=== PATIENT | female | born 1960 | race Caucasian/White ===

== ENCOUNTER 2017-02-21 13:17 | Observation (INO) ==
[2017-02-21] MEDS ORDERED: ZOFRAN IV PRN (14:33)
[2017-02-21] MEDS ORDERED: TYLENOL PO PRN (14:33)
[2017-02-21] MEDS ORDERED: MORPHINE IV PRN (14:33)
[2017-02-21 15:13] LABS: MANUAL DIFF NEEDED? NO
[2017-02-21] MEDS ORDERED: COLACE PO PRN (15:13)
[2017-02-21] MEDS ORDERED: VANCOMYCIN IV PER PHARMACY MISC SCH (15:15)
[2017-02-21 15:27] LABS: BASO% 0.6 % (0.0-0.8); EOS% 2.6 % (0.0-10.0); HEMOGLOBIN 11.9 g/dL (12.0-16.0); IMM GRAN# 0.12 X1000 (0.0-0.04); IMM GRAN% 0.8 % (0.0-0.5); LYMPH# 1.91 X1000 (1.2-3.4); LYMPH% 12.2 % (20.5-51.1); MCH 31.2 PG (27-31); MCV 91.6 FL (81-99); MONO# 1.22 X1000 (0.11-0.59); MONO% 7.8 % (1.7-9.3); MPV 11.7 FL (7.4-10.4); PLT 287 X1000 (130-400); RBC 3.82 XMIL (4.2-5.4)
[2017-02-21 15:36] LABS: INR 0.94; PROTIME 9.8 Seconds (9.2-11.7)
[2017-02-21 15:47] LABS: AGAP 17; ALBUMIN 3.4 g/dL (3.5-5.0); ALKALINE PHOSPHATASE 157 U/L (32-104); BUN 9 mg/dL (8-22); CALCIUM 8.7 mg/dL (8.8-10.2); CHLORIDE 105 mmol/L (98-107); CK PROFILE 31 U/L (24-173); COSMO 284; GOT 15 U/L (10-30); GPT 30 U/L (10-36); MAGNESIUM 1.8 mg/dL (1.5-2.7); POTASSIUM 3.2 mmol/L (3.5-5.1); SODIUM 143 mmol/L (136-145); TCO2 21 mmol/L (25-35); TOTAL BILIRUBIN 0.34 mg/dL (0.20-1.00); TOTAL PROTEIN 6.8 g/dL (6.3-8.3)
[2017-02-21] MEDS ORDERED: KLOR-CON PO ONE (15:48)
[2017-02-21] MEDS: NORCO-5 PO PRN (16:02)
[2017-02-21 16:25] LABS: MAGNESIUM 1.8 mg/dL (1.5-2.7)
--- NOTE | 2017-02-21 16:38 | Diag Imaging Result Doc PS360 ---
EXAM: PELVIS W/CONTRAST HISTORY: L hip abscess TECHNIQUE: CT of the pelvis with intravenous contrast COMMENT: There is subcutaneous edema and fluid present lateral to the gluteal region on the left. The fluid collection measures 4 cm in greatest AP dimension. This was not present on 12/18/2014. There is associated skin thickening. There may be a small amount of gas within the collection. There are no fluid collections or other acute abnormalities demonstrated within the true pelvis. There are no acute bony abnormalities. There is vacuum disc phenomenon at L5-S1. IMPRESSION: Subcutaneous abscess on the left as described. Electronically signed by Trey Bryant 02/21/2017 4:36 PM
[2017-02-21] MEDS: NS 1,000 ML IV SCH (16:51)
[2017-02-21] MEDS: MAXIPIME 2 GM/NS 2 GM/100 ML IVPB IV SCH (17:10)
[2017-02-21] MEDS ORDERED: VANCOMYCIN 1,500 MG in NS 250 ML IV SCH (18:00)
--- NOTE | 2017-02-21 18:25 | HISTORY AND PHYSICAL ---
CHIEF COMPLAINT: Left hip pain and fever. HISTORY OF PRESENT ILLNESS: Ms. 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 Around 3 weeks ago, she had an accidental fall and fell on a potted cactus on the side of her left hip. A few days ago she developed abscess over the left hip and saw Dr. Ureña who put her on oral antibiotics. Unfortunately this did not help and the abscess has gotten bigger and she is now febrile at 102.[address] Ureña called us and asked us to admit her directly. We do not have any labs at this time, but she is currently resting in bed comfortably without distress. We are going to order stat laboratory, blood cultures and start her on antibiotics per Dr. Ureña's recommendation. PAST MEDICAL HISTORY: The patient has 1 kidney, this is congenital. SURGICAL HISTORY: She has had a cholecystectomy, breast reduction, and right hand nerve repair secondary to dog bite. SOCIAL HISTORY: She quit smoking a year ago. She is . is at the bedside. 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 She does not drink, smoke cigarettes or use illicit substances. FAMILY HISTORY: Noncontributory. REVIEW OF SYSTEMS: Fourteen-point review of systems obtained and found to be negative with the exception of the HPI. HOME MEDICATIONS: None. ALLERGIES: Penicillin. PHYSICAL EXAMINATION: VITAL SIGNS: Pending. GENERAL: This is a well-developed, well-nourished, 56-year-old female , lying in hospital bed in no acute distress. NEUROLOGIC: Awake alert, and oriented. She follows commands without focal deficits. HEENT: Head is atraumatic and normocephalic. Her pupils are equal, round, reactive to light. Oral mucosa is moist. Trachea is midline. No JVD or carotid bruits. Chest clear to auscultation bilaterally. CARDIOVASCULAR: Regular rate and rhythm. S1-S2 is noted. No murmurs. GASTROINTESTINAL: Soft, nondistended, nontender. Bowel sounds positive. EXTREMITIES: Left hip with softball sized abscess and erythema over the anterior left hip. Lower extremities without edema, clubbing or cyanosis. Pulses palpable bilaterally. DIAGNOSTIC DATA: Pending. ASSESSMENT AND PLAN: Abscess over the left hip area: We will order stat laboratory, including blood cultures and lactic acid as well as chemistry and blood counts. Dr. Ureña is already aware of her admission. He will order appropriate antibiotics and will image the left hip via computed tomography. We will also start intravenous fluids and give pain medicine and antiemetics. Deep vein thrombosis prophylaxis with Lovenox. Further recommendations to follow. Dictated by EMMETT Tamayo for Kath Melton MD cc: EMMETT Tamayo MD The patient was seen and examined by me. I agree with the assessment and plan as dictated. [facility]
--- NOTE | 2017-02-21 19:37 | CONSULTATION ---
DATE OF CONSULTATION: 02/21/2017 CONCLUSION: The patient fell on a cactus plant approximately 3 weeks ago. Since then she has had pain, swelling and erythema of the involved left hip. There certainly seems to be an infection in that area. It may be an abscess. The patient has been taking Keflex for the past 2- 3 days without any improvement. There is no laboratory or radiographic studies at this time but they have been ordered to be done right away. RECOMMENDATIONS: I have ordered a CT scan of the left hip. Pending this result, I have started the patient on a combination of vancomycin and cefepime. PRESENT ILLNESS: The patient 3 weeks ago fell on a cactus plant. Since that time she had pain in the left hip and in the past week it has developed a mass which is tender but not fluctuant. She has also been running a fever of up to 103 degrees. She has been on Keflex for the past 2-3 days without any improvement in her pain or fever. Thus far no lab studies and no radiographic studies are present. Also there are no vital signs present at this time. PAST MEDICAL HISTORY, REVIEW OF SYSTEMS: Eyes and ears: Patient denies difficulty hearing or seeing. Neck: No meningismus. Thorax: No increased AP diameter of the chest. Lungs: Clear to auscultation. Cardiovascular: Regular heart rate. Abdomen and thighs: The patient has a left-sided pelvic mass. The overlying skin is erythematous. The mass is bigger in size than when I had previously palpated it 2 or 3 days ago. The patient also feels that the mass is getting bigger in size. SPECIAL EDUCATION TUTOR HISTORY: She is a 3, para 1, AB 2. She has had a hysterectomy. PREVIOUS HOSPITALIZATIONS AND OPERATIONS: She has had labor and delivery, 2 miscarriages and a hysterectomy. She has had surgery on her right wrist, bilateral breast reductions and cholecystectomy. REVIEW OF SYSTEMS: Eyes and ears: No difficulty hearing or seeing. Neck: No stiffness Respiratory: No cough. The patient does say in the past couple days she has felt a little short of breath. Head, eyes, ears, nose, and throat: The patient has a little upper respiratory congestion. Cardiac: No chest pain or palpitations. GI: No nausea, vomiting, or diarrhea. : No dysuria or flank pain. Integument: No rash. PAST HISTORY: Patient is 3, para 1, AB 2. She has had a hysterectomy. PREVIOUS HOSPITALIZATIONS AN OPERATIONS: She has had labor and deliveries, 2 miscarriages, a hysterectomy, right wrist surgery, breast reduction surgery and cholecystectomy. MEDICAL DISEASES: Negative for diabetes mellitus and hypertension. INFECTIOUS DISEASE HISTORY: Positive for pneumonia and UTI. FAMILY HISTORY: Positive for myocardial infarction, stroke, cancer and high blood pressure. SOCIAL HISTORY[place] . She does not have any pets at home. She has got an allergy to penicillin manifested by rash but she has been on Keflex for the past few days and since she has tolerated it well. The patient does not take any medication regularly but the medicine she takes most often is Motrin if she needs it. 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 PHYSICAL EXAMINATION: Vital Signs: No vital signs yet on the chart that I can see. Patient's weight is 148 pounds. The patient is 5 feet 1 inch tall. Generally: This is an ill-appearing middle-aged female who is in no acute distress. Head, eyes, ears, nose, and throat: She can hear my spoken words and see near objects. No drainage noted from the nose or ears. Neck: No meningismus. Thorax: No increased AP diameter. Lungs: Clear to auscultation. Cardiovascular: Heart rate is regular. Abdomen: Soft and nontender. Extremities: The patient has a mass on the left hip, the size of the mass is increasing from when I 1st saw it 2-3 days ago. The overlying skin is erythematous. The mass is indurated and tender. Neurologic: Patient is awake. She can move her extremities. There is no tremor. Her sensation is intact to touch. Bones, joints, muscles: She is having pain in the left hip area. However it does not appear to go deep into the joint and there is no pain with passive range of movement of the hip. Integument: No rash noted. Lungs: Clear to auscultation. Cardiovascular: Regular heart rate. Abdomen: Soft and nontender. Extremities: There is a large mass over the left hip. The mass is getting bigger than when I 1st saw it a few days ago. The overlying skin is erythematous. The mass is a tender but not fluctuant. Thank you for the consult. cc: Sagar Ureña MD
[2017-02-21 19:52] LABS: URINE CULTURE NEEDED? NO; URINE MICRO REVIEW NEEDED? NO; URINE SOURCE CLEAN CATCH
[2017-02-21 20:08] LABS: BILIRUBIN URINE NEGATIVE (NEGATIVE); BLOOD URINE NEGATIVE (NEGATIVE); COLOR YELLOW; GLUCOSE URINE NEGATIVE (NEGATIVE); LEUKOCYTES URINE NEGATIVE (NEGATIVE); NITRITE URINE NEGATIVE (NEGATIVE); PROTEIN URINE 30 mg/dL (NEGATIVE); TURBIDITY URINE CLEAR (CLEAR); UROBILINOGEN URINE NORMAL (NORMAL)
[2017-02-21 20:10] LABS: UR EPITHELIAL CELLS <10 /HPF (<10); URINE BACTERIA NEGATIVE /HPF; URINE RBC <10 /HPF (<10); URINE WBC <10 /HPF (<10)
[2017-02-21 20:22] LABS: SP GRAVITY URINE 1.015
[2017-02-21] MEDS: CUBICIN (FOR INPATIENT USE) 400 MG in NS 100 ML IV SCH (20:51)
[2017-02-21] MEDS: AMBIEN PO SCH (20:53)
[2017-02-22] MEDS: MAXIPIME 2 GM/NS 2 GM/100 ML IVPB IV SCH ×3 (01:58→16:27)
[2017-02-22] MEDS ORDERED: OFIRMEV 1000 MG/ISOTONIC SOLN 1,000 MG/100 ML BOTTLE IV ONE (05:34)
[2017-02-22] MEDS: NS 1,000 ML IV SCH ×2 (06:32→16:28)
[2017-02-22 06:37] LABS: MANUAL DIFF NEEDED? NO
[2017-02-22 07:02] LABS: BASO% 0.4 % (0.0-0.8); EOS# 0.31 X1000 (0.0-0.7); EOS% 2.5 % (0.0-10.0); HEMATOCRIT 33.5 % (37.0-47.0); HEMOGLOBIN 11.1 g/dL (12.0-16.0); IMM GRAN# 0.08 X1000 (0.0-0.04); IMM GRAN% 0.6 % (0.0-0.5); LYMPH# 1.64 X1000 (1.2-3.4); LYMPH% 13.1 % (20.5-51.1); MCH 30.5 PG (27-31); MCHC 33.1 g/dL (33-37); MONO# 0.92 X1000 (0.11-0.59); MONO% 7.3 % (1.7-9.3); MPV 11.4 FL (7.4-10.4); NEUT% 76.1 % (42.2-75.2); PLT 318 X1000 (130-400); RBC 3.64 XMIL (4.2-5.4)
[2017-02-22] MEDS ORDERED: DIPRIVAN 1% ONE (07:12)
[2017-02-22] MEDS ORDERED: XYLOCAINE-MPF 2% ONE (07:12)
[2017-02-22 07:15] LABS: AGAP 14; BUN 9 mg/dL (8-22); CALCIUM 8.7 mg/dL (8.8-10.2); CHLORIDE 105 mmol/L (98-107); COSMO 282; MAGNESIUM 1.6 mg/dL (1.5-2.7); POTASSIUM 3.7 mmol/L (3.5-5.1); SODIUM 142 mmol/L (136-145); TCO2 23 mmol/L (25-35)
[2017-02-22] MEDS ORDERED: MAGNESIUM SULFATE 2 GM/S.W.I. 2 GM/50 ML IVPB IV ONE (07:18)
[2017-02-22] MEDS ORDERED: FENTANYL ONE (08:10)
[2017-02-22] MEDS ORDERED: TORADOL ONE (08:10)
[2017-02-22] MEDS ORDERED: ZOFRAN ONE (08:10)
[2017-02-22] MEDS ORDERED: DECADRON ONE (08:10)
[2017-02-22] MEDS: MORPHINE ONE ×4 (08:50→10:31)
[2017-02-22] MEDS ORDERED: NORCO-5 ONE (09:05)
[2017-02-22] MEDS: NORCO-5 PO PRN ×2 (09:07→20:06)
[2017-02-22] MEDS: LOVENOX SUBQ SCH ×2 (09:16→09:34)
--- NOTE | 2017-02-22 14:11 | OPERATIVE NOTE ---
PROCEDURE DATE: 02/22/2017 PREOPERATIVE DIAGNOSIS: Left hip abscess. POSTOPERATIVE DIAGNOSIS: Left hip abscess. PROCEDURE PERFORMED: Incision and drainage (I and D). SURGEON: Shelton Barajas MD DESCRIPTION OF PROCEDURE: The patient was brought to the operating room and, after satisfactory IV and LMA anesthesia, she was turned onto her left side. Her left hip area was prepped and draped in the appropriate manner. The lower, dependent portion, of the abscess was incised with decompression of 100 mL or so of purulent material. Anaerobic and aerobic cultures were obtained. The wound was irrigated with peroxide and a Chapo-Goetz drain was threaded up through the track and into the cavity and hooked to suction. It was anchored with 0 silk. A sterile dressing was applied. She was turned back onto her back, awakened, extubated in the operating room, and transferred to recovery. Estimated blood loss was around 5 mL. cc: Shelton Barajas MD
[2017-02-22] MEDS ORDERED: VITAMIN D PO SCH (14:30)
--- NOTE | 2017-02-22 15:46 | PROGRESS NOTE ---
DATE: 02/22/2017 SUBJECTIVE: The patient is sitting up in bed, and she was taken for an I and D of the left hip abscess today. No acute events noted overnight. OBJECTIVE: Vital Signs: Temperature 97, blood pressure 131/61, heart rate 67, respirations 18, O2 saturations 97% on room air. Head: Normocephalic, atraumatic. Heart: S1, S2. Normal. Regular rate and rhythm. Lungs: Clear to auscultation bilaterally. No crackles. No rales. Abdomen: Positive bowel sounds. Soft, nontender, nondistended. Extremities: No edema. No cyanosis. Left hip: The dressing is clean, dry and intact. There is a drain. Neurologic: The patient is alert and oriented x3. LABS: White blood cell count 12, hemoglobin 11, hematocrit 33, platelets 318. Sodium 142, potassium 3.7, chloride 105, CO2 of 23, BUN 9, creatinine 0.8. Glucose 101. Phosphorus 3.6, magnesium 1.6. Vitamin D 5. Folate 15, vitamin B12 of 417. ASSESSMENT AND PLAN: 1. Status post incision and drainage of left hip abscess. Will follow up on the culture results. IV antibiotics as per Dr. Ureña. 2. Vitamin D deficiency. Will start the patient on vitamin D replacement. 3. Hypomagnesemia. Will replace the patient's magnesium. 4. Deep vein thrombosis prophylaxis. Continue on Lovenox. cc: Kath Melton MD
--- NOTE | 2017-02-22 16:27 | PROGRESS NOTE ---
DATE: 02/22/2017 PRESENT ILLNESS: The patient is status post drainage of an abscess performed by Dr. Shelton Barajas from the left hip. Gram stain of the material taken at surgery shows no organisms. MEDICATIONS: The patient has been started on a combination of daptomycin and cefepime. PHYSICAL EXAMINATION: Vital Signs: Temperature is 97.7 degrees, pulse 67, respirations 22, blood pressure 131/61. General: This is a healthy-appearing, middle-aged female. She is in no acute distress. Lungs: Clear to auscultation. Cardiovascular: Regular heart rate. Extremities: The patient has a drain in place on the left hip. The drainage in the Chapo-Goetz bulb is sanguinous. Lungs: Clear to auscultation. Cardiovascular: Regular heart rate. Abdomen: Soft and nontender. LAB AND X-RAY: Patient's CBC today shows a white count of 12,520, hemoglobin 11.1, and platelet count 318,000. Creatinine 0.5. GFR is greater than 60. Urinalysis shows no white cells or bacteria. Abscess Gram stain shows no organisms. ASSESSMENT AND PLAN: Patient is status post drainage of an abscess. The plan is to continue keeping daptomycin and cefepime going pending results tomorrow. COMORBIDITY: Was that she fell on a cactus which caused the infection in her left hip. cc: Sagar Ureña MD
[2017-02-22] MEDS: CUBICIN (FOR INPATIENT USE) 400 MG in NS 100 ML IV SCH (20:09)
[2017-02-22] MEDS: AMBIEN PO SCH (22:19)
[2017-02-23] MEDS: MAXIPIME 2 GM/NS 2 GM/100 ML IVPB IV SCH ×2 (01:01→08:56)
[2017-02-23] MEDS: NS 1,000 ML IV SCH (02:02)
[2017-02-23 06:43] LABS: MANUAL DIFF NEEDED? NO
[2017-02-23 06:54] LABS: BASO% 0.3 % (0.0-0.8); EOS# 0.06 X1000 (0.0-0.7); EOS% 0.5 % (0.0-10.0); HEMATOCRIT 34.3 % (37.0-47.0); HEMOGLOBIN 11.2 g/dL (12.0-16.0); IMM GRAN# 0.18 X1000 (0.0-0.04); IMM GRAN% 1.5 % (0.0-0.5); LYMPH# 2.01 X1000 (1.2-3.4); LYMPH% 16.8 % (20.5-51.1); MCH 30.4 PG (27-31); MCHC 32.7 g/dL (33-37); MONO# 0.67 X1000 (0.11-0.59); MONO% 5.6 % (1.7-9.3); MPV 11.3 FL (7.4-10.4); NEUT% 75.3 % (42.2-75.2); PLT 357 X1000 (130-400); RBC 3.69 XMIL (4.2-5.4)
[2017-02-23 07:32] LABS: AGAP 13; ALBUMIN 3.5 g/dL (3.5-5.0); ALKALINE PHOSPHATASE 144 U/L (32-104); BUN 11 mg/dL (8-22); CALCIUM 8.7 mg/dL (8.8-10.2); CHLORIDE 109 mmol/L (98-107); COSMO 289; GOT 20 U/L (10-30); GPT 40 U/L (10-36); POTASSIUM 4.1 mmol/L (3.5-5.1); SODIUM 145 mmol/L (136-145); TCO2 23 mmol/L (25-35); TOTAL BILIRUBIN 0.21 mg/dL (0.20-1.00); TOTAL PROTEIN 6.6 g/dL (6.3-8.3)
[2017-02-23 07:50] VITALS: BP 146/63
[2017-02-23] MEDS: LOVENOX SUBQ SCH ×2 (08:56)
--- NOTE | 2017-02-24 16:55 | DISCHARGE SUMMARY ---
ADMISSION DATE: 02/21/2017 DISCHARGE DATE: 02/23/2017 PRIMARY CARE PHYSICIAN: Lon Stokes MD. FINAL DISCHARGE DIAGNOSES: 1. Left hip abscess status post incision and drainage. 2. Vitamin D deficiency. 3. Leukocytosis. CONSULTATIONS 1. Infectious Disease consultation with Dr. Sagar Ureña. 2. General Surgery consultation with Dr. Barajas. PROCEDURE PERFORMED DURING THIS HOSPITAL STAY: Incision and drainage of left hip abscess performed on 01/23/2017. HOSPITAL COURSE: Ms. Ureña is a 56-year-old female who presented as a direct admit with left foot abscess. The patient was admitted to the Hospitalist Service and the patient was seen by Dr. Ureña. He sent the patient to the hospital. A CT of the pelvis was ordered which revealed a subcutaneous abscess on the left hip region. Dr. Barajas was then consulted and the patient was started on broad-spectrum antibiotics. The patient was taken to the OR on 02/22 at which time an incision and drainage was done. The patient was continued on the current IV antibiotics to include daptomycin and cefepime. The patient's blood cultures remained negative and the cultures taken during the incision and drainage remain negative at this time. The patient remained afebrile and her white count slowly improved. The patient was noted to be vitamin D deficient and was started on vitamin D replacement. The patient was ultimately cleared for discharge home on 02/23/2017 with instructions to continue on Keflex and to follow up with Dr. Ureña as scheduled by his clinic. DISCHARGE MEDICATIONS: 1. Keflex 500 mg p.o. every 8 hours. 2. Holabird 5/325, 1 tab oral every 4 hours p.r.n. for pain. 3. Vitamin D2, 50,000 units oral once a week. DISCHARGE DIET: Regular diet. ACTIVITY: As tolerated. FOLLOWUP INSTRUCTIONS: 1. The patient has been advised to follow up with Dr. Ureña as scheduled by his clinic. 2. The patient will also need to follow up with Dr. Barajas as scheduled by his clinic. cc: Lon Melton MD [facility]
== END 2017-02-23 11:58 | disposition home or self-care (01) ==
LOC: INTOOBSV 13:17 → DIRADM 13:17 → 3N 14:25
PROVIDERS: ATTEND Internal Medicine